=== PATIENT | female | born 1995 | race Caucasian/White ===

== ENCOUNTER 2019-02-03 23:05 | Emergency (ER) | payer OTHER ==
[~2019-02-03] VITALS: Ht 162.6 cm; Wt 51.7 kg
[2019-02-03] MEDS ORDERED: MULTIVITAMINS1 EAC7 (23:22)
[2019-02-04 01:43] LABS: HEMATOCRIT 34.6 % (37.0-47.0); HEMOGLOBIN 11.5 gm/dL (12.0-15.0); MCH 28.3 pg (26.0-34.0); MCHC 33.2 g/dL (28.0-37.0); MCV 85.3 fL (80.0-100.0); RBC 4.05 mil/uL (4.20-5.00)
[2019-02-04 01:47] LABS: CALCIUM 8.5 mg/dL (8.5-10.1); CREATININE 0.7 mg/dL (0.6-1.0); POTASSIUM 3.7 mmol/L (3.5-5.1)
[2019-02-04 02:18] LABS: AMP/METHAMP Negative (Negative); BARBITURATES Negative (Negative); BENZODIAZEPINES Negative (Negative); COCAINE Negative (Negative); METHADONE Negative (Negative); OPIATES Negative (Negative); PCP Negative (Negative)
[2019-02-04 02:27] VITALS: BP 111/59
--- NOTE | 2019-02-05 07:57 | EKG ---
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
== END 2019-02-04 02:30 | disposition home or self-care (01) ==
LOC: ER 23:05
PROVIDERS: Emergency Medicine
DX: R00.2 Palpitations (principal); J45.909 Unspecified asthma, uncomplicated; F41.9 Anxiety disorder, unspecified